=== PATIENT | female | born 1950 | race Caucasian/White ===

== ENCOUNTER 2019-11-22 09:48 | Emergency (ER) | payer OTHER ==
[~2019-11-22] VITALS: Ht 162.6 cm; Wt 83.9 kg
[2019-11-22] MEDS ORDERED: ZESTRIL40 MG PO (10:09)
[2019-11-22 10:18] LABS: ABSOLUTE BASOPHILS 0.1 thou/uL (0.0-0.2); ABSOLUTE EOSINOPHILS 0.3 thou/uL (0.0-0.7); ABSOLUTE LYMPHOCYTES 1.6 thou/uL (0.8-5.3); ABSOLUTE MONOCYTES 0.8 thou/uL (0.0-1.2); ABSOLUTE NEUTROPHILS 5.6 thou/uL (1.6-8.1); EOSINOPHILS 3.5 %; HEMATOCRIT 42.9 % (37.0-47.0); HEMOGLOBIN 14.1 gm/dL (12.0-15.0); MCH 30.6 pg (26.0-34.0); MCHC 32.9 g/dL (28.0-37.0); MCV 92.9 fL (80.0-100.0); MONOCYTES 9.5 %; MPV 9.3 fl. (7.2-11.1); NUCLEATED RBCS 0 /100WBC; PLATELET COUNT* 283 thou/uL (150-400); RBC 4.61 mil/uL (4.20-5.00); RDW-CV 13.1 % (10.5-14.5); WBC 8.4 thou/uL (4.0-11.0)
[2019-11-22 10:26] LABS: CREATININE 0.6 mg/dL (0.6-1.3); POTASSIUM 3.5 mmol/L (3.5-5.1)
[2019-11-22 10:41] LABS: ALBUMIN 3.7 g/dL (3.4-5.0); TOTAL BILIRUBIN 0.5 mg/dL (<0.1-1.0); TOTAL PROTEIN 7.3 g/dL (6.4-8.2)
[2019-11-22 10:45] LABS: APTT 26.3 Seconds (25.0-31.3)
[2019-11-22 12:37] VITALS: BP 119/70
--- NOTE | 2019-11-23 13:57 | EKG ---
[place] [address] ELECTROCARDIOGRAM REPORT Name: BEN MOCK Room: [facility]#: [id number] Admission: 11/22/19 Attend Phys: Discharge: 11/22/19 Date of : 52 Date of Service: 11/22/19 1141 Report #: [id number] THIS REPORT FOR: cc: Melisa Chu Sarah Anne FNP Holkins, John M. MD [facility] ~ THIS REPORT FOR: //name// [facility] ED Test Date: 2019-11-22 Test Time: 11:41:53 Pat Name: BEN MOCK Department: Room: Gender: F Rn Research: aries : 1950 Requested By: Shantelle Jerome Order Number: [id number] MD: Clive Jones Measurements Intervals [place] Rate: 72 P: -8 AR: 124 QRS: -37 QRSD: 102 T: 2 QT: 400 QTc: 438 Interpretive Statements Sinus rhythm Left ventricular hypertrophy Anterior Q waves, possibly due to LVH No previous ECG available for comparison Electronically Signed On 11-22-2019 12:55:08 SIDE STITCHER by Clive Jones [email or web address] <ELECTRONICALLY SIGNED> By: Clive Jones MD, FAC 11/22/19 1255 1141 1141 Clive Jones MD, [facility] /EPI
--- NOTE | 2019-11-23 13:57 | EKG ---
[place] [address] ELECTROCARDIOGRAM REPORT Name: BEN MOCK Room: [facility]#: [id number] Admission: 11/22/19 Attend Phys: Discharge: 11/22/19 Date of : 52 Date of Service: 11/22/19 0953 Report #: [id number] THIS REPORT FOR: cc: Melisa Chu Sarah Anne FNP Holkins, John M. MD [facility] ~ THIS REPORT FOR: //name// [facility] ED Test Date: 2019-11-22 Test Time: 09:53:04 Pat Name: BEN MOCK Department: Room: Gender: F Telecommunication Tower Technician: PAMELA : 1950 Requested By: Shantelle Jerome Order Number: [id number] MD: Clive Jones Measurements Intervals [place] Rate: 151 P: [place]: QRS: -40 QRSD: 98 T: 100 QT: 291 QTc: 462 Interpretive Statements Atrial fibrillation Left anterior fascicular block LVH with secondary repolarization abnormality Anterior Q waves, possibly due to LVH No previous ECG available for comparison Electronically Signed On 11-22-2019 12:53:20 REFRIGERATOR MOVER by Clive Jones [email or web address] <ELECTRONICALLY SIGNED> By: Clive Jones MD, [facility] 11/22/19 1253 0953 Clive Jones MD, [facility] /EPI
== END 2019-11-22 12:37 | disposition home or self-care (01) ==
LOC: M.ERS 09:48
PROVIDERS: Personal Emergency Response Attendant
DX: I48.91 Unspecified atrial fibrillation (principal); I10 Essential (primary) hypertension

== ENCOUNTER → 2020-08-08 | Outpatient (CLI) | payer OTHER ==
[~2020-08-08] MED LIST: ZESTRIL40 MG PO
== END ==
LOC: M.RAD 11:03
PROVIDERS: ATTEND Nurse Practitioner Family
DX: Z12.31 Encounter for screening mammogram for malignant neoplasm of breast (principal)